=== PATIENT | female | born 1960 | race Caucasian/White ===

== ENCOUNTER 2018-05-24 12:47 | Day surgery (SDC) | payer OTHER ==
[2018-05-23 10:27] VITALS: BMI 31.1
--- NOTE | 2018-05-23 14:45 | HP ---
DATE OF ADMISSION: 05/24/2018 HISTORY OF PRESENT ILLNESS: Ms. Tiki Ballard is a very pleasant 57-year-old female with chronic GI symptoms. The patient also has a history of chronic reflux and IBS. The patient comes in with abdominal pain, nausea, and vomiting. Apparently, she ate a grilled chicken 3 weeks ago and after that she started having abdominal cramping, diarrhea, nausea, and vomiting. The symptoms persisted . Although, she complained of diarrhea, the stool frequency is really between 2 and 4 per day. No evidence of rectal bleeding. The patient has had no recent travel outside the country. There is no history of any similar episodes in the past. Her appetite has been very poor recently. Does not feel like eating and she feels abdominal pain off and on. The pain is more diffuse and more like a soreness. The patient comes for an EGD, because of the abdominal pain, nausea, vomiting, and for colonoscopy because of diarrhea. ALLERGIES: None. SOCIAL HISTORY: The patient does not smoke and does not drink alcohol. MEDICAL ILLNESSES: 1. Hypertension. 2. Depression and anxiety. 3. Irritable bowel syndrome. 4. Chronic acid reflux. 5. Hyperlipidemia. 6. Prediabetes. 7. Diverticular disease. 8. Hiatal hernia. 9. Allergic rhinitis. PHYSICAL EXAMINATION: VITAL SIGNS: Pulse is 70, blood pressure 130/70. HEENT: Conjunctivae clear. NECK: Supple. CARDIOVASCULAR SYSTEM: First and second heart sounds are normal. LUNGS: Clear to auscultation. ABDOMEN: Soft. Abdomen is tender over the epigastric area. There is ulcer over the left lower quadrant, right lower quadrant, and hypogastric area. There is no rebound or guarding. ADMITTING DIAGNOSES: 1. Persistent nausea and vomiting. 2. Diarrhea. PLAN: EGD and colonoscopy. MTDD
[2018-05-24] MEDS ORDERED: PROPOFOL 200 MG/20 ML VIAL ONE (17:11)
[2018-05-24] MEDS ORDERED: Lidocaine 1% PF 5 ML VIAL ONE (17:11)
--- NOTE | 2018-05-24 22:42 | OP ---
DATE OF SURGERY: 05/24/2018 OPERATIVE PROCEDURE: Esophagogastroduodenoscopy with biopsy. PREOPERATIVE DIAGNOSES: Abdominal pain, nausea, and vomiting. She also has history of chronic acid reflux. POSTOPERATIVE DIAGNOSES: 1. Normal esophageal mucosa throughout. 2. Hiatus hernia. 3. Gastric polyp. 4. Normal duodenum. PROCEDURE IN DETAIL: The patient was placed on her left lateral position and was given sedation by [facility]. A Pentax video gastroscope under direct vision was passed down the oropharynx, past the GE junction, into the stomach and subsequently into the descending duodenum. Although, the patient has history of acid reflux, an endoscopy the mucosa appeared normal throughout. The GE junc tion, no pathology seen. She had a 3 cm hiatus hernia. Retroflexion failed to show any pathology in the fundus or cardia. Over the gastric body, the patient was found to have a sessile polyp. This w as biopsied. The incisural angularis and gastric antrum, no pathology seen. The duodenal bulb, desc ending duodenum, no pathology seen. Random biopsies obtained from the descending duodenum. The stom ach was decompressed and the scope removed. DISCHARGE PLANNING: This is a 57-year-old female with abdominal cramping, diarrhea, nausea , and vomiting. The patient underwent colonoscopy and was found to have no pathology. The EGD showe d again a gastric polyp, hiatus hernia. Random biopsies obtained from the ascending colon, transvers e colon, sigmoid colon to rule out microscopic colitis. Also, biopsies obtained from the descending duodenum. DISCHARGE RECOMMENDATIONS: 1. Metamucil once a day. 2. May start Bentyl 10 mg p.o. three times a day. 3. She was advised to call me if she develops abdominal pain and hematochezia. 4. In the absence of any of the above symptoms, she will come back to me in 2 weeks.
--- NOTE | 2018-05-24 22:58 | OP ---
DATE OF PROCEDURE: 05/24/2018 OPERATIVE PROCEDURE: Colonoscopy and biopsy. PREOPERATIVE DIAGNOSIS: A 57-year-old female who underwent cramping, chronic diarrhea, and colitis. POSTOPERATIVE DIAGNOSES: 1. Occasional sigmoid diverticula. 2. Hemorrhoids. 3. No colitis seen at endoscopy as the mucosa appears normal throughout the colon. 4. Random biopsies of the ascending colon, transverse colon, sigmoid colon to rule out microscopic c olitis. PROCEDURE IN DETAIL: The patient was placed on her left lateral position and was given sedation by [facility]. A rectal exam was done before the scope was advanced into the rectum. No lesi ons were felt on rectal exam. A Pentax video colonoscope was introduced into the rectum and advanced all the way into the cecum. The prep was good. The mucosa appears normal throughout the colon with normal vascular pattern. The epiglottis, ileocecal valve, cecum, no pathology seen. The ascending colon, hepatic flexure, transverse colon, splenic flexure, descending colon, no pathology seen. The sigmoid colon showed mild diverticulitis. rectal hemorrhoids. Random biopsies of the ascending colon , transverse colon, sigmoid colon to rule out microscopic colitis.
== END 2018-05-24 16:40 | disposition home or self-care (01) ==
LOC: SDC 12:47
PROVIDERS: ATTEND Internal Medicine Gastroenterology
PROC: 0DBK8ZX Excision of Ascending Colon, Via Natural or Artificial Opening Endoscopic, Diagnostic (ICD-10-PCS; principal; 2018-05-24)
PROC: 0DB78ZX Excision of Stomach, Pylorus, Via Natural or Artificial Opening Endoscopic, Diagnostic (ICD-10-PCS; principal; 2018-05-24)
PROC: 0DB98ZX Excision of Duodenum, Via Natural or Artificial Opening Endoscopic, Diagnostic (ICD-10-PCS; principal; 2018-05-24)
PROC: 0DBL8ZX Excision of Transverse Colon, Via Natural or Artificial Opening Endoscopic, Diagnostic (ICD-10-PCS; principal; 2018-05-24)
PROC: 0DBN8ZX Excision of Sigmoid Colon, Via Natural or Artificial Opening Endoscopic, Diagnostic (ICD-10-PCS; principal; 2018-05-24)
DX: K31.7 Polyp of stomach and duodenum (principal); K44.9 Diaphragmatic hernia without obstruction or gangrene; K57.30 Diverticulosis of large intestine without perforation or abscess without bleeding; K64.9 Unspecified hemorrhoids; K58.0 Irritable bowel syndrome with diarrhea; K21.9 Gastro-esophageal reflux disease without esophagitis; I10 Essential (primary) hypertension; F32.9 Major depressive disorder, single episode, unspecified; F41.9 Anxiety disorder, unspecified; E78.5 Hyperlipidemia, unspecified; J30.9 Allergic rhinitis, unspecified; Z79.51 Long term (current) use of inhaled steroids; Z79.899 Other long term (current) drug therapy
CPT/HCPCS: 88305; 88312; J2001; J2704

== ENCOUNTER 2020-12-18 09:20 | Outpatient (CLI) | payer BC | END 2020-12-18 09:21 | disposition home or self-care (01) | LOC: DTY/OP 09:20 | PROVIDERS: ATTEND Family Medicine | DX: R73.03 Prediabetes (principal) | CPT/HCPCS: 97802 ==